=== PATIENT | male | born 1950 | race Caucasian/White ===

== ENCOUNTER 2017-08-08 08:32 | Day surgery (SDC) | payer MEDICARE ==
[2017-08-02 15:12] VITALS: BMI 23.6
[~2017-08-08 08:32] MED LIST: DEXAMETHASONE SOD PHOSPHATE 10 MG/ML 1 ML VIAL IV ONE; HEPARIN SODIUM,PORCINE 5,000 UNIT/ML 1 ML VIAL SQ ONE; LACTATED RINGERS 1,000 ML IV SCH; LIDOCAINE 1% 20 ML VIAL (10MG/ML) FOR IV START INTRADERMA PRN; MORPHINE SULFATE 4 MG/0.8 ML SYRINGE (INJ) IV PRN; ONDANSETRON ODT 4 MG TAB PO ONE; SCOPOLAMINE 1.5MG/72HR PATCH TRANSDERM ONE; ceFAZolin IN SWFI 2 GM/20 ML SYRINGE IVP ONE
--- NOTE | 2017-08-08 09:16 | P.GSHP ---
History of Present Illness H&P Date: 08/08/17 Chief Complaint: Recurrent right inguinal hernia, left inguinal hernia This is a 67-year-old male who's developed a recurrent right inguinal hernia and a new left inguinal hernia. Patient presents today for robotic-assisted repair. Past Medical History Past Medical History: No Reported History History of Any Multi-Drug Resistant Organisms: None Reported Past Surgical History: Hernia Repair Additional Past Surgical History / Comment(s): hernia x3 right Past Anesthesia/Blood Transfusion Reactions: No Reported Reaction Smoking Status: Never smoker - Past Family History Mother Family Medical History: No Reported History Medications and Allergies Home Medications Medication Instructions Recorded Confirmed Type Garlic 1 each PO DAILY 08/02/17 08/02/17 History Lecithin, Soy [Lecithin] 400 mg PO DAILY 08/02/17 08/02/17 History Multivitamin [Men's Multi-Vitamin] 1 each PO DAILY 08/02/17 08/02/17 History Red Tart [place] 1 cap PO DAILY 08/02/17 08/02/17 History Ubidecarenone [Co Q-10] 100 mg PO DAILY 08/02/17 08/02/17 History Allergies Allergy/AdvReac Type Severity Reaction Status Date / Time No Known Allergies Allergy Verified 08/02/17 15:02 Surgical - Exam - General well developed, no distress - Eyes PERRL - ENT normal pinna - Neck no masses - Respiratory normal expansion - Cardiovascular Rhythm: regular - Abdomen Abdomen: soft, non tender Hernia: inguinal (Recurrent right inguinal hernia, left internal hernia) Assessment and Plan Assessment: Recurrent right inguinal hernia, left inguinal hernia. We'll perform laparoscopic robotic-assisted repair.
[2017-08-08] MEDS ORDERED: PROPOFOL 10 MG/ML 20 ML VIAL IV ONE (09:43)
[2017-08-08] MEDS ORDERED: KETOROLAC 30 MG/ML 1 ML VIAL ONE (09:43)
[2017-08-08] MEDS ORDERED: NEOSTIGMINE 1 MG/ML 10 ML VIAL ONE (09:43)
[2017-08-08] MEDS ORDERED: ROCURONIUM BROMIDE 10 MG/ML 10 ML VIAL IV ONE (09:43)
[2017-08-08] MEDS ORDERED: LIDOCAINE 1% INJ 10MG/ML (20 ML MDV) ONE (09:43)
[2017-08-08] MEDS ORDERED: SUCCINYLCHOLINE CHLORIDE 100 MG/5 ML SYR IV ONE (09:43)
[2017-08-08] MEDS ORDERED: MEPERIDINE 50 MG/ML SYRINGE ONE (09:43)
[2017-08-08] MEDS ORDERED: MIDAZOLAM 2 MG/2 ML VIAL ONE (09:43)
[2017-08-08] MEDS ORDERED: GLYCOPYRROLATE 0.2 MG/ML 2 ML VIAL ONE (09:43)
[2017-08-08] MEDS ORDERED: fentaNYL (PF) 50 MCG/ML 2 ML AMP ONE (09:43)
[2017-08-08] MEDS ORDERED: LIDOCAINE 1%-EPI 1:100,000 30 ML VIAL SQ ONE (10:12)
--- NOTE | 2017-08-08 11:31 | P.OP ---
Date of Procedure: 08/08/17 Preoperative Diagnosis: Recurrent right inguinal hernia Left inguinal hernia Postoperative Diagnosis: Recurrent right inguinal hernia Left inguinal hernia Procedure(s) Performed: Laparoscopic robotic-assisted repair of recurrent right inguinal hernia Laparoscopic robotic-assisted repair of left inguinal hernia Excision of bilateral cord lipoma Anesthesia: ZION Surgeon: Amrit Atwood Estimated Blood Loss (ml): 10 Pathology: other (Cord lipoma) Condition: stable Disposition: PACU Description of Procedure: The patient's placed on the operating table in the supine position. The patient received general anesthesia. The patient's abdomen was prepped and draped in usual sterile fashion. The skin was anesthetized 1% local Xylocaine at the incision sites. Using an 11 blade a skin incision was made at the umbilicus. The fascia was grasped with a [place] and then the peritoneal cavity was entered with the Veress needle. Position of the Veress needle was confirmed with a positive drop test. After adequate insufflation a 5 mm trocar was placed into the peritoneal cavity. The Laparoscope was placed the peritoneal cavity. And a robotic 8 mm trocar was placed in the right lateral position and then another 8 mm robotic trochars placed in the left lateral position. The original 5 mm trocar was exchanged for a 12 mm trocar. The patient was placed in reverse Trendelenburg and then the patient was docked to the robot. Next the peritoneum over top of the right inguinal hernia was incised and then using blunt and sharp dissection and electrocautery the hernia sac was dissected free from the floor of the inguinal canal. A cord lipoma was dissected from the cord The hernia sac was completely reduced into the peritoneal cavity. And then using the Pro seamer elastic band mesh the hernia was repaired. The peritoneum was then sutured with 20V lock suture. Next the peritoneum over top of the left inguinal hernia was incised and then using blunt and sharp dissection and electrocautery the hernia sac was dissected free from the floor of the inguinal canal. A cord lipoma was dissected from the cord The hernia sac was completely reduced into the peritoneal cavity. And then using the Pro seamer elastic band mesh the hernia was repaired. The peritoneum was then sutured with 20V lock suture. The patient was then undocked the robot. The needle was withdrawn from the peritoneal cavity. The cord lipomas were withdrawn. The umbilical trocar site was closed with 0 Ethibond suture. The skin was closed interrupted 3-0 Monocryl suture. Dermabond dressing was applied. Patient was sent to recovery in stable condition.
[2017-08-08 11:39] VITALS: TEMP 97.2
[2017-08-08] MEDS ORDERED: LACTATED RINGERS 1,000 ML IV ONE (12:42)
[2017-08-08] MEDS ORDERED: HYDROcodone/APAP 7.5-325MG 1 EACH TAB PO ONE (13:15)
[2017-08-08 13:38] VITALS: RESP 20
[2017-08-08 14:13] VITALS: BP 128/82; PULSE 86
== END 2017-08-08 14:20 | disposition home or self-care (01) ==
LOC: OR 08:32
PROVIDERS: ATTEND Surgery
DX: K40.91 Unilateral inguinal hernia, without obstruction or gangrene, recurrent (principal); K40.90 Unilateral inguinal hernia, without obstruction or gangrene, not specified as recurrent; D17.6 Benign lipomatous neoplasm of spermatic cord; Z79.899 Other long term (current) drug therapy
CPT/HCPCS: 88304; 88305; 49651; 49650; C1781; J2250; J1644; J1100; J2710; J2175; J2001; J3010; J1885; J0330; J2704; J0690

== ENCOUNTER → 2022-05-16 | Outpatient (CLI) | payer MEDICARE ==
--- NOTE | 2022-05-17 21:16 | CT ---
EXAMINATION TYPE: CT pelvis wo con CT DLP: 260.0 mGycm, Automated exposure control for dose reduction was used. DATE OF EXAM: 05/16/2022 5:36 PM COMPARISON: None CLINICAL INDICATION:Male, 72 years old with history of K43.2 Incisional hernia; Incisional groin mayr ia TECHNIQUE: Axial CT of the pelvis. Sagittal and coronal reformats were created on a separate worksta tion. Contrast used: None Oral contrast used: with Oral Contrast FINDINGS: RENAL: Bilateral renal cysts. BLADDER: Unremarkable REPRODUCTIVE: Unremarkable STOMACH AND BOWEL: No evidence of bowel obstruction. PERITONEUM/RETROPERITONEUM: No evidence of pneumoperitoneum or free fluid. VASCULATURE: No evidence of aortic aneurysm. Mild atherosclerosis of the arterial vasculature. MUSCULOSKELETAL: No acute osseous abnormalities, mild disc degeneration changes of the visualized spi ne. LYMPH NODES: No gross evidence for lymphadenopathy. SOFT TISSUE/ABDOMINAL WALL: Left inguinal hernia containing loops of small bowel. No evidence of obst ruction. No evidence of right hernia no additional abdominal wall hernia is identified. IMPRESSION: Left inguinal hernia containing loops of small bowel without evidence of obstruction. No evidence for strangulation.
== END | disposition home or self-care (01) ==
LOC: RADCTMAIN 15:56
PROVIDERS: ATTEND Surgery Plastic and Reconstructive Surgery
DX: Z01.89 Encounter for other specified special examinations (principal); K43.2 Incisional hernia without obstruction or gangrene; K40.90 Unilateral inguinal hernia, without obstruction or gangrene, not specified as recurrent
CPT/HCPCS: 72192

== ENCOUNTER 2022-06-30 09:17 | Day surgery (SDC) | payer MEDICARE ==
[2022-06-29 08:40] VITALS: BMI 23.3
[~2022-06-30 09:17] MED LIST changes: -DEXAMETHASONE SOD PHOSPHATE 10 MG/ML 1 ML VIAL IV ONE; +DEXAMETHASONE SOD PHOSPHATE 4 MG/ML 1 ML VIAL IV ONE; -HEPARIN SODIUM,PORCINE 5,000 UNIT/ML 1 ML VIAL SQ ONE; +HEPARIN SODIUM,PORCINE/PF 5,000 UNIT/0.5 ML SYRINGE SQ PRN; +HYDROmorphone 0.5 MG/0.5 ML SYRINGE IVP PRN; -LIDOCAINE 1% 20 ML VIAL (10MG/ML) FOR IV START INTRADERMA PRN; +MIDAZOLAM 2 MG/2 ML VIAL IV PRN; -MORPHINE SULFATE 4 MG/0.8 ML SYRINGE (INJ) IV PRN; +ONDANSETRON 4 MG/2 ML VIAL IVP ONE; -ONDANSETRON ODT 4 MG TAB PO ONE; -SCOPOLAMINE 1.5MG/72HR PATCH TRANSDERM ONE; -ceFAZolin IN SWFI 2 GM/20 ML SYRINGE IVP ONE
[2022-06-30 09:57] VITALS: TEMP 97.2
[2022-06-30] MEDS ORDERED: MIDAZOLAM 2 MG/2 ML VIAL IVP ONE (10:22)
[2022-06-30] MEDS ORDERED: fentaNYL (PF) 50 MCG/1 ML VIAL IVP ONE (10:22)
[2022-06-30 10:37] LABS: ALT 33 U/L (4-49); AST 25 U/L (17-59); African American GFR (CKD) >90 (>60 ml/min/1.73 sqM); Albumin 4.5 g/dL (3.5-5.0); Alkaline Phosphatase 76 U/L (38-126); Anion Gap 8 mmol/L; Blood Urea Nitrogen 18 mg/dL (9-20); Calcium 9.3 mg/dL (8.4-10.2); Carbon Dioxide 27 mmol/L (22-30); Chloride 108 mmol/L (98-107); Glucose 114 mg/dL (74-99); Non-African American GFR(CKD) 88 (>60 ml/min/1.73 sqM); Potassium 3.7 mmol/L (3.5-5.1); Sodium 143 mmol/L (137-145); Total Bilirubin 0.9 mg/dL (0.2-1.3); Total Protein 7.5 g/dL (6.3-8.2)
[2022-06-30] MEDS ORDERED: ACETAMINOPHEN TAB 500 MG TAB PO STA (10:50)
[2022-06-30] MEDS ORDERED: TAMSULOSIN 0.4 MG CAP.ER.24H PO STA (10:50)
[2022-06-30] MEDS ORDERED: GABAPENTIN 300 MG CAP PO STA (10:50)
--- NOTE | 2022-06-30 10:53 | P.GSHP ---
History of Present Illness H&P Date: 06/30/22 CHIEF COMPLAINT: Inguinal hernia, left. HISTORY OF PRESENT ILLNESS: The patient is a 72-year-old male who presents with a history of swelling and pain along the left groin. He has had previous repair. He's noted increased swelling including pain of the area. Now he presents for repair of his inguinal hernia. PAST MEDICAL HISTORY: Please see list. PAST SURGICAL HISTORY: Please see list. MEDICATIONS: Please see list. ALLERGIES: Please see list. SOCIAL HISTORY: No illicit drug use FAMILY HISTORY: No reports of Crohn disease or ulcerative colitis. REVIEW OF ORGAN SYSTEMS: CONSTITUTIONAL: No reports of fevers or chills. No reports of weight loss despite prior attempts. GI: Denies any blood in stools or constipation. PHYSICAL EXAM: VITAL SIGNS: Stable GENERAL: Well-developed pleasant male in no acute distress. HEENT: No scleral icterus. Extraocular movements grossly intact. Moist buccal mucosa. NECK: Supple without lymphadenopathy. CHEST: Unlabored respirations. Equal bilateral excursions. CARDIOVASCULAR: Regular rate and rhythm. Distal 2+ pulses. ABDOMEN: Soft, nondistended. No peritoneal signs. Palpable defect of the left groin. MUSCULOSKELETAL: No clubbing, cyanosis, or edema. ASSESSMENT: 1. Inguinal hernia, left PLAN: 1. Recommend proceeding with a robotic inguinal repair with mesh with possible bilateral approach. 2. Benefits and risks of surgical intervention was discussed including possibility of open technique. 3. DVT prophylaxis. 4. Antibiotic prophylaxis. 5. Non narcotic pain management including abdominal wall block described 6. Blood sugar glucose described. 7. Weight loss management described. Past Medical History Past Medical History: No Reported History Additional Past Medical History / Comment(s): left inguinal hernia History of Any Multi-Drug Resistant Organisms: None Reported Past Surgical History: Hernia Repair Additional Past Surgical History / Comment(s): right inguinal hernia x3 ., left inguinal hernia x1 Past Anesthesia/Blood Transfusion Reactions: No Reported Reaction Past Psychological History: No Psychological Hx Reported Smoking Status: Never smoker Past Alcohol Use History: None Reported, Occasional Past Drug Use History: Marijuana Additional Drug Use History / Comment(s): occasional marijuana - Past Family History Mother Family Medical History: CVA/TIA Medications and Allergies Home Medications Medication Instructions Recorded Confirmed Type Multivitamin [Men's Multi-Vitamin] 1 each PO DAILY 08/02/17 06/29/22 History Aspirin 650 mg PO DIRECTED PRN 06/29/22 06/29/22 History Co Q-10 1 dose PO DAILY 06/29/22 06/30/22 History Echinacea 1 dose PO DAILY 06/29/22 06/30/22 History Elderberry 1 dose PO DAILY 06/29/22 06/30/22 History Allergies Allergy/AdvReac Type Severity Reaction Status Date / Time No Known Allergies Allergy Verified 06/30/22 09:48 Surgical - Exam Vital Signs Temp Pulse Resp BP Pulse Ox 97.2 F L 74 18 168/88 98 06/30/22 09:55 06/30/22 09:55 06/30/22 09:55 06/30/22 09:55 06/30/22 09:55 Results - Labs 06/30/22 10:05 Abnormal Lab Results - Last 24 Hours (Table) 06/30/22 Range/Units 10:05 Chloride 108 H (98-107) mmol/L Glucose 114 H (74-99) mg/dL Diabetes panel 06/30/22 Range/Units 10:05 Sodium 143 (137-145) mmol/L Potassium 3.7 (3.5-5.1) mmol/L Chloride 108 H (98-107) mmol/L Carbon Dioxide 27 (22-30) mmol/L BUN 18 (9-20) mg/dL Creatinine 0.86 (0.66-1.25) mg/dL Glucose 114 H (74-99) mg/dL Calcium 9.3 (8.4-10.2) mg/dL AST 25 (17-59) U/L ALT 33 (4-49) U/L Alkaline Phosphatase 76 (38-126) U/L Total Protein 7.5 (6.3-8.2) g/dL Albumin 4.5 (3.5-5.0) g/dL Calcium panel 06/30/22 Range/Units 10:05 Calcium 9.3 (8.4-10.2) mg/dL Albumin 4.5 (3.5-5.0) g/dL Pituitary panel 06/30/22 Range/Units 10:05 Sodium 143 (137-145) mmol/L Potassium 3.7 (3.5-5.1) mmol/L Chloride 108 H (98-107) mmol/L Carbon Dioxide 27 (22-30) mmol/L BUN 18 (9-20) mg/dL Creatinine 0.86 (0.66-1.25) mg/dL Glucose 114 H (74-99) mg/dL Calcium 9.3 (8.4-10.2) mg/dL Adrenal panel 06/30/22 Range/Units 10:05 Sodium 143 (137-145) mmol/L Potassium 3.7 (3.5-5.1) mmol/L Chloride 108 H (98-107) mmol/L Carbon Dioxide 27 (22-30) mmol/L BUN 18 (9-20) mg/dL Creatinine 0.86 (0.66-1.25) mg/dL Glucose 114 H (74-99) mg/dL Calcium 9.3 (8.4-10.2) mg/dL Total Bilirubin 0.9 (0.2-1.3) mg/dL AST 25 (17-59) U/L ALT 33 (4-49) U/L Alkaline Phosphatase 76 (38-126) U/L Total Protein 7.5 (6.3-8.2) g/dL Albumin 4.5 (3.5-5.0) g/dL
[2022-06-30] MEDS ORDERED: MELOXICAM 7.5 MG TAB PO SCH (11:00)
[2022-06-30 11:42] VITALS: RESP 16
--- NOTE | 2022-06-30 11:56 | P.ANPRN ---
Procedure Note - Anesthesia - Nerve Block Performed Bilateral Transversus Abdominis Single Time Out Performed: Yes (1055) Date of Procedure: 06/30/22 Location of Patient: PreOp Indication: Acute Post-Operative Pain, Dx/Pain Location (Abdominal pain), Requested by Surgeon Specifically requested for management of pain by DrSalma: Gabbie Espitia Sedation Type: Sedate with meaningful contact maintained Preparation: Sterile Prep Position: Supine Catheter: None Needle Types: Pajunk Needle Gauge: 21 (100 mm) Ultrasound used to visualize needle placement: Yes Ultrasound used to observe medication spread: Yes Injectate: 0.5% Ropivacaine (see comment for volume) (20 ml + 10 ml of saline on each side) Blood Aspirated: No Pain Paresthesia on Injection Noted: No Resistance on Injection: Normal Image Stored and Saved: Yes Events: Uneventful and Well Tolerated
[2022-06-30] MEDS ORDERED: fentaNYL (PF) 50 MCG/ML 2 ML AMP ONE (12:01)
[2022-06-30] MEDS ORDERED: NEOSTIGMINE 1 MG/ML 10 ML VIAL ONE (12:01)
[2022-06-30] MEDS ORDERED: ROCURONIUM 10 MG/ML (5 ML VIAL) IV ONE (12:01)
[2022-06-30] MEDS ORDERED: GLYCOPYRROLATE 0.2 MG/ML 2 ML VIAL ONE (12:01)
[2022-06-30] MEDS ORDERED: LIDOCAINE 2% INJ 20 MG/ML (2 ML VIAL) ONE (12:01)
[2022-06-30] MEDS ORDERED: SUCCINYLCHOLINE CHLORIDE 200 MG/10 ML VIAL IV ONE (12:01)
[2022-06-30] MEDS ORDERED: PROPOFOL 10 MG/ML 20 ML VIAL IV ONE (12:01)
[2022-06-30] MEDS ORDERED: SODIUM CHLORIDE 0.9% (PF) 10 ML VIAL ONE (12:01)
[2022-06-30] MEDS ORDERED: MIDAZOLAM 2 MG/2 ML VIAL ONE (12:01)
[2022-06-30] MEDS ORDERED: ROPIVACAINE 5 MG/ML 30 ML VIAL ONE (12:01)
[2022-06-30 12:02] LABS: Basophils % (A) 0 %; Eosinophils % (A) 1 %; HCT 42.2 % (39.0-53.0); Lymphocytes # (A) 0.7 k/uL (1.0-4.8); Lymphocytes % (A) 15 %; MCH 33.8 pg (25.0-35.0); MCHC 35.5 g/dL (31.0-37.0); MCV 95.1 fL (80.0-100.0); Mean Platelet Volume 7.7; Monocytes # (A) 0.2 k/uL (0-1.0); Monocytes % (A) 3 %; Neutrophils # (A) 3.7 k/uL (1.3-7.7); Neutrophils % (A) 79 %; Platelet Count 159 k/uL (150-450); RBC 4.44 m/uL (4.30-5.90); RDW 12.6 % (11.5-15.5); WBC 4.7 k/uL (3.8-10.6)
[2022-06-30] MEDS ORDERED: LACTATED RINGERS 1,000 ML IV ONE (12:35)
[2022-06-30] MEDS ORDERED: BUPIVACAIN-EPI 0.25%-1:200,000 30 ML VIAL SQ ONE (12:37)
[2022-06-30] MEDS ORDERED: TAMSULOSIN 0.4 MG CAP.ER.24H PO PRN (14:32)
[2022-06-30] MEDS ORDERED: HYDROcodone/APAP 7.5-325MG 1 EACH TAB PO PRN (14:32)
[2022-06-30 16:18] VITALS: BP 133/86; PULSE 98
--- NOTE | 2022-07-03 15:21 | P.OP ---
Date of Procedure: 06/30/22 Description of Procedure: SURGEON: GABBIE ESPITIA MD PREOPERATIVE DIAGNOSES: 1. Recurrent left inguinal hernia 2. History of multiple left inguinal hernia repairs 3. History of multiple right inguinal hernia repairs POSTOPERATIVE DIAGNOSES: 1. Recurrent left inguinal hernia, indirect, 3 cm with incarceration, small bowel 2. History of multiple left inguinal hernia repairs 3. History of multiple right inguinal hernia repairs 4. History of right obturator hernia repair OPERATION: 1. Robotic-assisted da Willie Xi laparoscopic reduction of incarcerated hernia and repair of recurrent left indirect inguinal hernia with mesh, 11.[address] ANESTHESIA: General with local anesthetic ESTIMATED BLOOD LOSS: 5 mL. SPECIMENS: 1. Left inguinal hernia sac COMPLICATIONS: None. FINDINGS: 1. Multiple reconstruction with mesh of bilateral inguinal region 2. Incarcerated small bowel, left indirect inguinal hernia, recurrent with small bowel viable 3. No recurrent right inguinal hernia 4. Small less than 5 mm recurrent obturator hernia, right INDICATIONS: The patient is a 72-year-old gentleman who presents with a personal history of multiple bilateral inguinal hernia repairs now with recurrence along the left. Now presents for surgical intervention. Laparoscopic versus open and robotic approaches were discussed. Benefits and risks including bleeding, infection, injury to the vas deferens as well as sterility and chronic groin pain were reviewed. Placement of mesh was also described. Informed consent was obtained. DESCRIPTION: In the preoperative area, the patient marked the site with indelible marker along the inguinal hernia. The patient was brought to the operating room and initially laid in supine position. The abdomen had been prepped and draped in standard sterile fashion. [place] draping was also placed. Prior to incision, a timeout protocol was confirmed with surgical team regarding patient's name including procedures to be performed and location along the right groin. Initial positioning for the robotic assisted ports were selected whereby 15 cm superior to the target anatomy, 0 degree 5 mm laparoscopic trocar entry was performed at the left upper quadrant. The abdomen was insufflated to 15 mmHg which he had tolerated well. Diagnostic laparoscopy demonstrated no injury to bowel, viscera or mesentery. A indirect left inguinal hernia was identified with incarcerated small intestine. No recurrent hernia was identified along the right groin. Small less than 5 mm recurrence obturator hernia of the right above the bladder identified. Moderate pelvic reconstruction with multiple mesh implants along the preperitoneal plane identified. Attention was brought to repair of his left inguinal hernia. Next, along the epigastrium, 8 mm robot trocar was placed. An 8-mm robotic trocar was placed under direct visualization at the right upper quadrant. An 8 mm port was placed at the left upper quadrant. All trocars were positioned between 10-cm apart from each other. An accessory trocar 12 mm placed along the right upper abdominal wall, lateral. The [email or web address] robot was primed, draped, prepared for docking along upper abdomen of the patient. The patient was positioned 14 steep Trendelenburg position I then went to the [email or web address] console. The pathology assistant was at bedside for exchange of the robot arms and equipment. Along the left groin, small bowel was reduced from the indirect left inguinal hernia and viable. Adhesions were taken down using scissors with artery. The peritoneum was scored using scissors with cautery and the contents were evaginated. The sac extended to the scrotum and was resected and then passed off for further pathological analysis. The size of the hernia defect was 3 cm with intraoperative films obtained. Using a nonabsorbable 2-0 VLOC, the peritoneal defect of the left inguinal hernia site was closed using a pursestring suture. The defect was found to be completely closed with complete reduction of the left inguinal hernia. As an onlay, an 11.[address] mesh by [employer] was cut in half and entered into the abdominal cavity via the 8 mm trocar. The mesh was tacked to the pelvis using absorbable 2-0 VLOC sutures. The robot was undocked from the patient's bedside. I then rescrubbed into the case. Kaveh Mascorro with 0 Vicryl was used to close the right lateral upper quadrant 12 mm trocar incision. Insufflation was released from the abdominal cavity and all instruments were removed from the abdominal cavity. Air within the scrotum and pelvis was relieved. The rest of incisions were reapproximated using 4-0 Monocryl in a running subcuticular fashion. Incisions were cleansed using dilute hydrogen peroxide. Liquid glue was applied to the skin. At the end of the procedure, the needle, sponge and instrument counts had been verified correct by the surgical coder. The patient had tolerated the procedure well and was taken to the postanesthesia care unit in stable condition. Plan - Discharge Summary Discharge Rx Participant: Yes New Discharge Prescriptions: New Ibuprofen [Motrin] 600 mg PO Q8HR PRN #30 tab PRN Reason: Pain Acetaminophen Tab [Tylenol Tab] 1,000 mg PO Q6HR PRN #30 tablet PRN Reason: Pain Simethicone 40 mg/0.6 ml Drops [Mylicon Drops] 40 mg PO Q6HR PRN #30 ml PRN Reason: Abdominal Distention Continue Multivitamin [Men's Multi-Vitamin] 1 each PO DAILY Co Q-10 1 dose PO DAILY Aspirin 650 mg PO DIRECTED PRN PRN Reason: Pain Elderberry 1 dose PO DAILY Echinacea 1 dose PO DAILY Discharge Medication List Multivitamin [Men's Multi-Vitamin] 1 each PO DAILY 08/02/17 [History] Aspirin 650 mg PO DIRECTED PRN 06/29/22 [History] Co Q-10 1 dose PO DAILY 06/29/22 [History] Echinacea 1 dose PO DAILY 06/29/22 [History] Elderberry 1 dose PO DAILY 06/29/22 [History] Acetaminophen Tab [Tylenol Tab] 1,000 mg PO Q6HR PRN #30 tablet 06/30/22 [Rx] Ibuprofen [Motrin] 600 mg PO Q8HR PRN #30 tab 06/30/22 [Rx] Simethicone 40 mg/0.6 ml Drops [Mylicon Drops] 40 mg PO Q6HR PRN #30 ml 06/30/22 [Rx] Follow up Appointment(s)/Referral(s): Gabbie Espitia MD [STAFF PHYSICIAN] - 1 Week ( TELEHEALTH - Dr calls you, please confirm your telephone number ) Patient Instructions/Handouts: *[facility] - Anesthesia Discharge Instructions, *[facility] - Managing Your Pain After Surgery Without Opioids, Inguinal Hernia Repair (GEN) Activity/Diet/Wound Care/Special Instructions: No lifting for 10 pounds in 2 weeks, July 14 Using antibacterial soap. May shower. No bathtub soaks for 2 weeks, July 14 Wear abdominal binder daily for comfort except for showering. Use ice along incisions for today to prevent swelling. Discharge Disposition: HOME SELF-CARE
== END 2022-06-30 16:46 | disposition home or self-care (01) ==
LOC: OR 09:17
PROVIDERS: ATTEND Surgery Plastic and Reconstructive Surgery
DX: K40.91 Unilateral inguinal hernia, without obstruction or gangrene, recurrent (principal); K45.8 Other specified abdominal hernia without obstruction or gangrene; Z87.19 Personal history of other diseases of the digestive system; Z98.890 Other specified postprocedural states; G89.18 Other acute postprocedural pain; F10.20 Alcohol dependence, uncomplicated; F12.90 Cannabis use, unspecified, uncomplicated; Z79.1 Long term (current) use of non-steroidal anti-inflammatories (NSAID); Z79.899 Other long term (current) drug therapy; Z82.3 Family history of stroke; Z79.82 Long term (current) use of aspirin
CPT/HCPCS: 49651; 64488; 80053; 85025; 88302; C1781; J2250; J0330; J1100; J2710; J0690; J2405; J3010 ×2; J2795; J2704; J1644; J2001